=== PATIENT | female | born 1950 | race Caucasian/White ===

== ENCOUNTER 2017-07-05 12:46 | Emergency (ER) | payer MEDICAID, MEDICARE, OTHER ==
--- NOTE | 2017-07-05 14:20 | RAD ---
HISTORY: Left fifth digit pain and bruising COMPARISONS: None VIEWS: 3, Frontal, lateral, and oblique views of the fifth digit of the left hand FINDINGS: BONE DENSITY: Normal. BONES: There is no displaced fracture. 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 ALIGNMENT: There is no dislocation. SOFT TISSUES: There is fusiform soft tissue swelling centered at the PIP joint. OTHER FINDINGS: None. IMPRESSION: OSTEOARTHRITIS. SOFT TISSUE SWELLING. NO ACUTE OSSEOUS INJURY. IF SYMPTOMS PERSIST, RECOMMEND REPEAT IMAGING.
--- NOTE | 2017-07-05 14:27 | UC ---
Hand/Wrist HPI - HPI Summary HPI Summary: 66 female presents to [facility] with complaints of left pinky finger pain, swelling and redness that began on 07/01/17. Patient states it feels similar to previous GOUT attacks. She used to take allopurinol and colchicine for gout attacks however has not been on medication for a while now. Patient states she has not had an injury or trauma to the pinky. Hurts to touch and move. No other complaints. PMHx significant for GOUT, DM, HTN and high cholesterol. No other complaints at this time. - History Of Current Complaint Chief Complaint: UCUpperExtremity Stated Complaint: LEFT PINKY COMPLAINT Time Seen by Provider: 07/05/17 14:27 Hx Obtained From: Patient Onset/Duration: Sudden Onset Severity Initially: Mild Severity Currently: Mild Pain Intensity: 7 Pain Scale Used: 0-10 Numeric Character Of Pain: Sharp, Aching Aggravating Factor(s): Movement Alleviating Factor(s): Nothing Associated Signs And Symptoms: Positive: Swelling, Redness Related History: Dominant Hand Right - Allergies/Home Medications Allergies/Adverse Reactions: Allergies Allergy/AdvReac Type Severity Reaction Status Date / Time Acetaminophen [From Percocet] Allergy Intermediate rash/itchin Verified 13:28 g Morphine Allergy Intermediate GI Verified 07/05/17 13:28 Oxycodone Allergy Intermediate rash/itchin Verified 07/05/17 13:28 g Sulfa Antibiotics Allergy Intermediate Hives Verified 07/05/17 13:28 CT dye AdvReac Vomiting Uncoded 07/05/17 13:28 PMH/Surg Hx/FS Hx/Imm Hx - Additional Past Medical History Additional PMH: GOUT Endocrine History: Diabetes Cardiovascular History: Hypertension - Surgical History Surgical History: Yes Surgery Procedure, Year, and Place: right shoulder surgery x2. bilat knee replacement, R x2. tonsillectomy age 4. tubal ligation 1988 - Family History Known Family History: Positive: None - Social History Alcohol Use: None Substance Use Type: None Smoking Status (MU): Never Smoked Tobacco - Immunization History Most Recent Influenza Vaccination: [id number] Review of Systems Constitutional: Negative Skin: Other - redness, swerlling Respiratory: Negative Cardiovascular: Negative Neurovascular: Negative Musculoskeletal: Arthralgia, Edema - left fifth digit, Myalgia Neurological: Negative All Other Systems Reviewed And Are Negative: Yes Physical Exam Triage Information Reviewed: Yes Appearance: Well-Appearing, Well-Nourished, Pain Distress - moderate with touching and movement of fifth digit Vital Signs: Initial Vital Signs Pulse 88 07/05/17 13:25 Resp 16 07/05/17 13:25 BP 154/83 07/05/17 13:25 Pulse Ox 99 07/05/17 13:25 97.8 temp, 136/69 BP improved, medicated for HTN Vital Signs Reviewed: Yes Eyes: Positive: Conjunctiva Clear ENT: Positive: Hearing grossly normal Neck: Positive: Supple, Nontender Respiratory: Positive: Chest non-tender, Lungs clear, Normal breath sounds, No respiratory distress, No accessory muscle use Cardiovascular: Positive: RRR, No Murmur, Pulses Normal - 2+, Brisk Capillary Refill - < 2 seconds Musculoskeletal: Positive: Strength Limited @, ROM Limited @ - due to pain of left fifth digit, Edema @ - left fifth digit with erythema of PIP joint Neurological: Positive: Alert Skin: Positive: Other - erythema, warmth and edema of left fifth digit at PIP joint, no open wounds, rest of skin exam normal Diagnostics - Radiology left fifth Xray Interpretation: Positive (See Comments) - OSTEOARTHRITIS. SOFT TISSUE SWELLING. NO ACUTE OSSEOUS INJURY. IF SYMPTOMS PERSIST, RECOMMEND REPEAT IMAGING. Radiology Interpretation Completed By: Radiologist Hand/Wrist Course/Dx - Course Course Of Treatment: xray obtained and showed STS. Due to PE findings, history and complaint of symptoms will treat for acute Gout attack as it appears to be what symptoms are coming from. since previously took Colchicine for previous attacks along with PMHx, will treat with colchicine. Does not appear to be a cellulitis or other etiology at this time. No concern for trauma or injury. Aware of worsening signs and symptoms to watch out for. Follow up and return if does not improve. - Differential Dx/Diagnosis Differential Diagnosis/HQI/PQRI: Cellulitis, Gout, Infection, Strain, Tendonitis Provider Diagnoses: acute gout left fifth PIP joint Discharge - Discharge Plan Condition: Stable Disposition: HOME Prescriptions: Colchicine* [Colcrys*] 0.6 mg PO DAILY #10 tab Patient Education Materials: Gout (ED), Low Purine Diet (ED) Referrals: ERIKA Elizondo [Primary Care Provider] - Additional Instructions: Take prescribed medication as directed to help with gout flare until symptoms resolve. Avoid high purine diet. If symptoms do not improve or worsen please return as this may need additional treatment. Follow up with PCP.
[2017-07-05 15:04] VITALS: BP 158/93
== END 2017-07-05 15:04 | disposition home or self-care (01) ==
LOC: UCCORT 12:46
DX: M10.9 Gout, unspecified (principal); Z88.6 Allergy status to analgesic agent; Z88.2 Allergy status to sulfonamides; E11.9 Type 2 diabetes mellitus without complications; I10 Essential (primary) hypertension
CPT/HCPCS: 73140; 99213; G0463